=== PATIENT | male | born 1995 | race African-American/Black ===

== ENCOUNTER 2022-01-08 16:00 | Emergency (ER) | payer OTHER ==
[~2022-01-08] VITALS: Ht 180.3 cm; Wt 79.0 kg
[2022-01-08] MEDS ORDERED: ONDANSETRON 4MG ODT PO ONE (16:45)
[2022-01-08] MEDS ORDERED: MECLIZINE 25MG TABLET PO ONE (17:30)
[2022-01-08 17:57] LABS: BASOPHILS % 0.2 % (0.0-2.0); EOSINOPHILS % 0.7 % (0.0-5.0); HEMATOCRIT. 38.3 % (42.0-52.0); HEMOGLOBIN. 13.2 g/dL (14.0-18.0); LYMPHOCYTES % 16.3 % (20.0-50.0); MEAN CORPUSCULAR VOLUME 92.7 fL (80.0-94.0); MEAN PLATELET VOLUME 7.7 fl (7.4-10.4); NEUTROPHILS % 73.8 % (40.0-76.0); PLATELET 210 x1000/uL (130-400); RED BLOOD CELL COUNT 4.13 mill/uL (4.7-6.1); RED CELL DISTRIBUTION WIDTH 12.7 % (11.6-14.6)
[2022-01-08 18:11] LABS: CHLORIDE 107 mEq/L (98-107)
[2022-01-08 18:16] LABS: ETHANOL BLOOD < 10 mg/dL
[2022-01-08 18:57] LABS: *AMPHETAMINES SCREEN URINE NEGATIVE (NEGATIVE); *BARBITURATES SCREEN URINE NEGATIVE (NEGATIVE); *BENZODIAZEPINES SCREEN URINE NEGATIVE (NEGATIVE); *COCAINE SCREEN URINE NEGATIVE (NEGATIVE); CANNABINOID URINE SCREEN PRESUMTIVE POSITIVE (NEGATIVE); METHADONE URINE SCREEN NEGATIVE (NEGATIVE); OPIATES URINE SCREEN NEGATIVE (NEGATIVE); PHENCYCLIDINE URINE SCREEN NEGATIVE (NEGATIVE)
[2022-01-08 20:16] VITALS: BP 118/76
== END 2022-01-08 20:17 | disposition home or self-care (01) ==
LOC: ER 16:00
DX: F12.10 Cannabis abuse, uncomplicated (principal); R42 Dizziness and giddiness; R11.0 Nausea
CPT/HCPCS: 36415; 80053; 80305; 80320; 83690; 85025; 99283; Q0162; J8597; G0480